=== PATIENT | male | born 1980 | race Caucasian/White ===

== ENCOUNTER 2020-03-26 12:24 | Emergency (ER) | payer OTHER, SELFPAY ==
[2020-03-26 12:25] VITALS: BP 152/94; PULSE 100; RESP 18; TEMP 36.4; BMI 29.2
--- NOTE | 2020-03-26 13:34 | RAD_ITS ---
STUDY: X-RAY - RIGHT HAND, ATTENTION THIRD FINGER REASON FOR EXAM: Male, 39 years old. Laceration to tip of 3rd digit. TECHNIQUE: 3 view(s) of the finger were obtained. COMPARISON: None. FINDINGS: Normal metacarpal head. Normal metacarpophalangeal joint. Normal proximal phalanx. Normal middle phalanx. Normal distal phalanx. Normal proximal interphalangeal joint. Normal distal interphalangeal joint. Soft tissue swelling. Laceration overlying the tuft of the distal phalanx of the third digit. RAD/Finger(s) Min 2 Views IMPRESSION: Soft tissue swelling. Laceration overlying the tuft of the distal phalanx of the third digit. Electronically Signed: Ankit Tillman, at 14:21 EST , Service support ,
--- NOTE | 2020-03-26 14:01 | ED.DCSUM_ITS ---
History of Present Illness Chief Complaint: Laceration Informant: Patient Narrative: Patient is a 39-year-old previously healthy male who presents to the emergency department for laceration to the tip of his right middle finger. He was at work and cut it on a piece of rebar. He states that the finger was hanging on by a thread. The wound was wrapped prior to coming in. He is not on any anticoagulation. He does not know when his last tetanus shot was. He denies any other injury. Bleeding controlled prior to arrival in the ED. He is right- handed at baseline. Past Medical History - Allergies and Home Meds Allergies/Adverse Reactions: Allergies No Known Allergies Allergy (Verified 03/26/20 13:27) Primary Care Physician: Javier Montague DO [NON CLINICAL AFFILIATE] - 7 Days for suture removal Care Physician,No Primary [Primary Care Provider] - Past Medical History: None Smoking Status: Current every day smoker Review of Systems All systems negative except as indicated General: Denies: Chills, Fever Eyes: Denies: Visual changes - bilaterally, Diplopia ENT: Denies: Rhinorrhea Cardiovascular: Denies: Chest pain, Palpitations Respiratory: Denies: Dyspnea, Cough, Dyspnea on exertion Gastrointestinal: Denies: Abdominal pain, Nausea, Vomiting Musculoskeletal: Reports: Extremity Pain. Denies: Back pain Skin: Reports: Wounds. Denies: Rash Neurological: Denies: Headache, Weakness, Numbness Physical Exam Vital Signs/Narrative: Vital Signs Temp Pulse Resp BP 03/26/20 12:25 97.6 F L 100 18 152/94 H Inital Vital Signs reviewed: Yes General: Well nourished, Well developed, No Acute Distress Head: Normocephalic, Atraumatic Eyes: Perrl, EOMI ENT: Moist mucous membranes, No rhinorrhea Neck: Supple, Nontender Cardiovascular: Regular rate, Regular rhythm, No murmurs Respiratory: No distress, CTA bilaterally, Chest nontender Abdomen: Soft, Nondistended Back: Nontender Extremities: Nontender, No edema Skin: Normal color, No rash, - - Laceration to right middle finger. This is 2 cm in length. 3 mm deep at most. Mild venous ooze present. Neurovascularly intact. Good capillary refill. Has full range of motion. Neurological: Alert, Oriented x3, Cranial nerves II-XII grossly intact, Normal Strength, Normal Sensation Psychological: Normal affect, Normal Mood Diagnostic/Tx/Re-eval - Medical Decision Making Patient presents to the emergency department for laceration to his right middle finger. Patient will be updated on Tdap. Being obtained to evaluate for bony involvement. X-ray did not show any bony involvement. Wound was copiously irrigated. Digital block was used after cleaning the area with alcohol. After suture repair patient had antibiotic ointment applied and wrapped. He is to follow-up with his PCP. Uterus will need to be removed in 7 to 10 days. He is to monitor for evidence of infection. He understands and is agreeable this plan. Patient discharged home in stable condition. Procedures Procedure(s): Laceration repair: Informed consent was obtained before procedure started. The appropriate timeout was taken. The area was prepped and draped in the usual sterile fashion. Local anesthesia was difficult to obtain with a dig ital block. I did use 5cc of lidocaine 1% without epinephrine. The wound was copiously irrigated. 4 5-0 Ethilon/Nylon simple interrupted sutures were placed. A dressing was applied to the area and anticipatory guidance, as well as standard post procedure care, was explained. Return precautions are given. The patient tolerated the procedure well without any apparent complications. Follow-up visit set for suture removal and evaluation of laceration. ED Disposition - Plan for ED Patient: Disposition: Home or Assisted Living Diagnosis: Finger laceration Instructions: ED Laceration All Closures Referrals: Care Physician,No Primary [Primary Care Provider] - Javier Montague DO [NON CLINICAL AFFILIATE] - 7 Days for suture removal
[2020-03-26] MEDS: Diphth,Pertuss(Acell),Tet Vac 0.5 ML Vial IM (14:55)
== END 2020-03-26 16:08 | disposition home or self-care (01) ==
PROVIDERS: Emergency Provider Emergency Medicine
DX: S61.212A Laceration without foreign body of right middle finger without damage to nail, initial encounter (principal); W45.8XXA Other foreign body or object entering through skin, initial encounter; Y93.89 Activity, other specified; Y92.89 Other specified places as the place of occurrence of the external cause; Y99.0 Civilian activity done for income or pay; F17.200 Nicotine dependence, unspecified, uncomplicated; Z23 Encounter for immunization
CPT/HCPCS: 12041; 73140; 90471; 90715; 99282